=== PATIENT | male | born 1970 | race African-American/Black ===

== ENCOUNTER 2021-04-30 19:31 | Emergency (ER) | payer BC ==
[~2021-04-30] VITALS: Ht 182.9 cm; Wt 131.5 kg
[2021-04-30] MEDS ORDERED: ZOFRAN8 MG PO (22:30)
[2021-04-30] MEDS ORDERED: PEPCID AC20 MG PO (22:30)
[2021-04-30] MEDS ORDERED: LEVSIN/SL0.125 MG SL (22:30)
== END 2021-04-30 22:49 | disposition home or self-care (01) ==
LOC: ER 19:31
DX: K52.89 Other specified noninfective gastroenteritis and colitis (principal); K57.30 Diverticulosis of large intestine without perforation or abscess without bleeding